=== PATIENT | female | born 1970 | race African-American/Black ===

== ENCOUNTER 2024-04-08 01:16 | Emergency (ER) | payer MEDICAID ==
[~2024-04-08] VITALS: Ht 165.1 cm; Wt 65.0 kg
[~2024-04-08 01:16] MED LIST: APIX5TAB MT; FURO80TA87 MT; METO25TA6 PO; POTA-205 MT
[2024-04-08 01:27] VITALS: TEMP 97.8
[2024-04-08 04:43] VITALS: PULSE 54; RESP 18; O2SAT 96
[2024-04-08] MEDS: IPRATROPIUM BROMIDE (0.02%) 0.5MG/2.5ML NEB HHN STA (04:43)
[2024-04-08] MEDS: ALBUTEROL (0.083%) 2.5MG/3ML NEB HHN STA (04:43)
[2024-04-08 05:56] LABS: BASOPHILS % 1.2 % (0.0-2.0); EOSINOPHILS % 2.4 % (0.0-5.0); HEMATOCRIT. 37.1 % (36.0-48.0); HEMOGLOBIN. 11.9 g/dL (12.0-16.0); LYMPHOCYTES % 34.6 % (20.0-50.0); MEAN CORPUSCULAR HEMOGLOBIN 27.3 pg (28.0-32.0); MEAN CORPUSCULAR VOLUME 85.2 fL (81.0-99.0); MEAN PLATELET VOLUME 9.9 fl (7.4-10.4); NEUTROPHILS % 54.8 % (40.0-76.0); PLATELET 335 x1000/uL (130-400); RED BLOOD CELL COUNT 4.36 mill/uL (4.2-5.4); RED CELL DISTRIBUTION WIDTH 16.8 % (11.6-14.6); WHITE BLOOD COUNT 10.9 x1000/uL (4.5-11.0)
[2024-04-08 06:04] LABS: CHLORIDE 110 mEq/L (98-107); POTASSIUM 4.3 mEq/L (3.5-5.1); SODIUM 143 mEq/L (136-145)
[2024-04-08 06:05] LABS: CALCIUM 8.7 mg/dL (8.7-10.4); CARBON DIOXIDE 25 mEq/L (21-32)
[2024-04-08 06:10] LABS: CREATININE 0.6 mg/dL (0.6-1.0); GLUCOSE 102 mg/dL (70-105); UREA NITROGEN BLOOD 17 mg/dL (9-23)
[2024-04-08 06:16] LABS: TROPONIN I HIGH SENSITIVITY 74 ng/L (3.0-34)
[2024-04-08 07:43] VITALS: BP 101/54; PULSE 97; RESP 15
[2024-04-08] MEDS ORDERED: FURO-151 MT (08:22)
== END 2024-04-08 08:31 | disposition home or self-care (01) ==
LOC: ER 01:16
DX: I50.9 Heart failure, unspecified (principal); J45.909 Unspecified asthma, uncomplicated; I48.91 Unspecified atrial fibrillation
CPT/HCPCS: 80048; 83880; 85025; 84484; 36415; 71045; 94640; 93005; 99285; Z7610 ×3

== ENCOUNTER 2024-04-11 20:40 | Emergency (ER) | payer MEDICAID ==
[~2024-04-11] VITALS: Ht 167.6 cm; Wt 54.0 kg
[~2024-04-11 20:40] MED LIST changes: +FURO-151 MT
[2024-04-11 20:47] VITALS: O2SAT 98
[2024-04-11] MEDS ORDERED: FUROSEMIDE 40MG/4ML VIAL IVP ONE (21:30)
[2024-04-11] MEDS ORDERED: CEFTRIAXONE 1GM/50ML 50 ML IV ONE (21:30)
[2024-04-11] MEDS ORDERED: AZITHROMYCIN 500MG/250ML 250 ML IV SCH (21:30)
[2024-04-11] MEDS: FUROSEMIDE 40MG/4ML VIAL IVP NR (23:45)
[2024-04-11] MEDS: AZITHROMYCIN 500MG/250ML 250 ML IV NR (23:45)
[2024-04-11] MEDS: CEFTRIAXONE 1GM/50ML 50 ML IV NR (23:45)
[2024-04-12 00:27] VITALS: BP 131/82; PULSE 104; RESP 18; TEMP 98.1
[2024-04-12] MEDS ORDERED: LEVO750T68 MT (00:47)
[2024-04-12] MEDS: LEVOFLOXACIN 250MG TABLET PO ONE (01:32)
== END 2024-04-12 01:02 | disposition home or self-care (01) ==
LOC: ER 20:40
DX: J18.9 Pneumonia, unspecified organism (principal); I11.0 Hypertensive heart disease with heart failure; I50.9 Heart failure, unspecified; I48.91 Unspecified atrial fibrillation; J45.909 Unspecified asthma, uncomplicated
CPT/HCPCS: 71045; 93005; 99283; Z7610

== ENCOUNTER 2024-04-12 09:42 | Inpatient (IN) | payer MEDICAID ==
[~2024-04-12] VITALS: Ht 167.6 cm; Wt 56.2 kg
[~2024-04-12 09:42] MED LIST changes: +LEVO750T68 MT
[2024-04-12] MEDS ORDERED: AZITHROMYCIN 500MG/250ML 250 ML IV ONE (10:45)
[2024-04-12] MEDS ORDERED: CEFTRIAXONE 1GM/50ML 50 ML IV ONE (10:45)
[2024-04-12 11:18] LABS: BASOPHILS % 0.7 % (0.0-2.0); HEMATOCRIT. 39.5 % (36.0-48.0); HEMOGLOBIN. 12.6 g/dL (12.0-16.0); LYMPHOCYTES % 31.2 % (20.0-50.0); MEAN CORPUSCULAR HGB CONC 31.8 g/dL (31.0-37.0); MEAN PLATELET VOLUME 10.3 fl (7.4-10.4); MONOCYTES % 7.8 % (2.0-8.0); NEUTROPHILS % 59.3 % (40.0-76.0); PLATELET 260 x1000/uL (130-400); RED BLOOD CELL COUNT 4.65 mill/uL (4.2-5.4); RED CELL DISTRIBUTION WIDTH 16.7 % (11.6-14.6); WHITE BLOOD COUNT 11.1 x1000/uL (4.5-11.0)
[2024-04-12 11:25] LABS: CHLORIDE 106 mEq/L (98-107); POTASSIUM 3.8 mEq/L (3.5-5.1); SODIUM 138 mEq/L (136-145)
[2024-04-12 11:26] LABS: CALCIUM 9.3 mg/dL (8.7-10.4); CARBON DIOXIDE 23 mEq/L (21-32)
[2024-04-12 11:31] LABS: CREATININE 0.8 mg/dL (0.6-1.0); GLUCOSE 115 mg/dL (70-105); UREA NITROGEN BLOOD 16 mg/dL (9-23)
[2024-04-12 11:32] LABS: ALANINE AMINOTRANSFERASE 79 IU/L (10-49); TROPONIN I HIGH SENSITIVITY 34 ng/L (3.0-34)
[2024-04-12 11:33] LABS: ALBUMIN 4.1 g/dL (3.2-4.8); ASPARTATE AMINOTRANSFERASE 85 IU/L (<34); BILIRUBIN DIRECT 0.6 mg/dL (<=3.0); BILIRUBIN TOTAL 1.6 mg/dL (0.1-1.0); LACTIC ACID 2.2 mmol/L (0.4-2.0); PROTEIN TOTAL 6.7 g/dL (6.0-8.3)
[2024-04-12] MEDS: FUROSEMIDE 40MG/4ML VIAL IVP SCH (12:00)
[2024-04-12 12:51] LABS: CLARITY URINE CLEAR (CLEAR); COLOR URINE YELLOW (YELLOW); GLUCOSE URINE NEGATIVE (NEGATIVE); KETONES URINE NEGATIVE (NEGATIVE); LEUKOCYTE ESTERASE URINE NEGATIVE (NEGATIVE); NITRITE URINE NEGATIVE (NEGATIVE); OCCULT BLOOD URINE NEGATIVE (NEGATIVE); PH URINE 6.5 (4.5-8.0); PROTEIN URINE NEGATIVE (NEGATIVE); SPECIFIC GRAVITY URINE 1.006 (1.005-1.030); UROBILINOGEN URINE 0.2 E.U./dL (0.2-1.0)
[2024-04-12] MEDS: LIDOCAINE HCL 1% 10 MG/ML 10ML VIAL ONE (13:09)
[2024-04-12] MEDS: SODIUM CHLORIDE 0.9% 100 ML IV ONE (15:07)
[2024-04-12 17:59] VITALS: BP 135/78; PULSE 77; RESP 20; TEMP 97.5
[2024-04-12] MEDS ORDERED: INFLUENZA VACCINE 05/PF 0.5 ML SYRINGE IM ONE (18:30)
[2024-04-12 20:00] VITALS: BP 125/76; PULSE 89; RESP 18; TEMP 97
[2024-04-12] MEDS ORDERED: IPRATROPIUM/ALBUTEROL 0.5-3(2.5)MG/3ML NEB HHN PRN ×2 (20:00)
[2024-04-12] MEDS ORDERED: LOSARTAN 50 MG TABLET PO NR (20:00)
[2024-04-12] MEDS ORDERED: ACETAMINOPHEN 325MG TABLET PO PRN (20:00)
[2024-04-12] MEDS: ATORVASTATIN CALCIUM 40MG TABLET PO SCH (20:44)
[2024-04-12] MEDS: APIXABAN 5 MG TABLET PO SCH (20:44)
[2024-04-12] MEDS: FUROSEMIDE 40MG TABLET PO SCH (20:44)
[2024-04-12] MEDS: CEFTRIAXONE 1GM/50ML 50 ML IV NR (21:05)
[2024-04-12] MEDS: LOSARTAN 50 MG TABLET PO SCH (21:05)
[2024-04-12] MEDS: AZITHROMYCIN 500MG/250ML 250 ML IV NR (21:42)
[2024-04-13] VITALS: BP 122/72; PULSE 82; RESP 18; TEMP 97.8
[2024-04-13 04:00] VITALS: BP 126/78; PULSE 87; RESP 17; TEMP 97.7
[2024-04-13 07:54] LABS: HEMATOCRIT 34.9 % (36.0-48.0); HEMOGLOBIN 11.1 g/dL (12.0-16.0); MEAN CORPUSCULAR HGB CONC 31.8 g/dL (31.0-37.0); MEAN CORPUSCULAR VOLUME 84.9 fL (81.0-99.0); PLATELET 193 x1000/uL (130-400); RED BLOOD CELL COUNT 4.11 mill/uL (4.2-5.4); RED CELL DISTRIBUTION WIDTH 16.6 % (11.6-14.6); WHITE BLOOD COUNT 9.8 x1000/uL (4.5-11.0)
[2024-04-13 08:00] VITALS: BP 140/91; PULSE 94; RESP 18; TEMP 97.1
[2024-04-13 08:00] LABS: CHLORIDE 104 mEq/L (98-107); POTASSIUM 3.3 mEq/L (3.5-5.1); SODIUM 138 mEq/L (136-145)
[2024-04-13 08:01] LABS: CALCIUM 8.4 mg/dL (8.7-10.4); CARBON DIOXIDE 27 mEq/L (21-32)
[2024-04-13 08:06] LABS: CREATININE 0.6 mg/dL (0.6-1.0); GLUCOSE 99 mg/dL (70-105); TRIGLYCERIDE 83 mg/dL (0-150)
[2024-04-13 08:07] LABS: LDL CHOLESTEROL 118 mg/dL (5-100)
[2024-04-13 08:08] LABS: CHOLESTEROL 170 mg/dL (<200); HDL CHOLESTEROL 39 mg/dL (>65)
[2024-04-13 08:24] LABS: UREA NITROGEN BLOOD 15 mg/dL (9-23)
[2024-04-13 08:28] LABS: THYROID STIMULATING HORMONE 1.28 uIU/mL (0.55-4.78)
[2024-04-13 12:00] VITALS: BP 137/86; PULSE 95; RESP 18; TEMP 96.8
[2024-04-13] MEDS: POTASSIUM CHLORIDE 20MEQ TABLET SR PO NR (13:42)
[2024-04-13 16:00] VITALS: BP 135/84; PULSE 94; RESP 18; TEMP 97.5
[2024-04-13 20:00] VITALS: BP 127/63; PULSE 91; RESP 18; TEMP 97.8
[2024-04-13] MEDS ORDERED: CEFTRIAXONE 1GM/50ML 50 ML IV SCH (20:00)
[2024-04-13] MEDS ORDERED: AZITHROMYCIN 500MG/250ML 250 ML IV SCH (21:00)
[2024-04-14] VITALS: BP 136/53; PULSE 88; RESP 17; TEMP 97.6
[2024-04-14 04:00] VITALS: BP 131/67; PULSE 86; RESP 18; TEMP 97.4
[2024-04-14 08:00] VITALS: BP 125/68; PULSE 89; RESP 18; TEMP 97.8
[2024-04-14] MEDS: CEFTRIAXONE 1GM/50ML 50 ML IV SCH (08:00)
[2024-04-14] MEDS: AZITHROMYCIN 500MG/250ML 250 ML IV SCH (09:00)
[2024-04-14 09:13] VITALS: PULSE 107; RESP 20
[2024-04-14] MEDS: IPRATROPIUM/ALBUTEROL 0.5-3(2.5)MG/3ML NEB HHN SCH (09:13)
[2024-04-14] MEDS ORDERED: FURO-151 MT (10:34)
[2024-04-14] MEDS ORDERED: FLUT1DIS3 INH (10:34)
[2024-04-14] MEDS ORDERED: SPIR25TA6 MT (10:34)
[2024-04-14] MEDS ORDERED: METO25TA6 MT (10:34)
[2024-04-14] MEDS ORDERED: ALBU18HF2 IH (10:34)
[2024-04-14] MEDS ORDERED: LOSA25TA26 MT (10:34)
[2024-04-14 12:00] VITALS: BP 128/70; PULSE 87; RESP 18; TEMP 97.7
[2024-04-14 14:46] VITALS: BP 122/94; PULSE 80; TEMP 97.8; O2SAT 100
== END 2024-04-14 15:35 | disposition home or self-care (01) | DRG 139 ==
LOC: ER 09:42 → EDBEDREQ 11:16 → 5WST 12:35 → EDBEDREQ 12:42 → EDBEDREQTM 12:42 → EDBEDREQSVC 12:43 → 8WST 18:30
PROVIDERS: ADMIT Internal Medicine; ATTEND Internal Medicine
PROC: 05HY33Z Insertion of Infusion Device into Upper Vein, Percutaneous Approach (ICD-10-PCS; principal; 2024-04-12)
PROC: B54MZZA Ultrasonography of Right Upper Extremity Veins, Guidance (ICD-10-PCS; 2024-04-12)
DX: J18.9 Pneumonia, unspecified organism (principal); J96.00 Acute respiratory failure, unspecified whether with hypoxia or hypercapnia; I50.23 Acute on chronic systolic (congestive) heart failure; I11.0 Hypertensive heart disease with heart failure; Z79.01 Long term (current) use of anticoagulants; I48.91 Unspecified atrial fibrillation; J44.0 Chronic obstructive pulmonary disease with (acute) lower respiratory infection; F19.10 Other psychoactive substance abuse, uncomplicated; F17.210 Nicotine dependence, cigarettes, uncomplicated; Z59.00 Homelessness unspecified; Z79.899 Other long term (current) drug therapy
CPT/HCPCS: 36415; 36573; 80048; 80061; 80076; 81003; 83605; 83880; 84443; 84484; 85025; 85027; 93005; 94640; 99285; C1725; J0456; J0696; J1940; J3490; J7050